=== PATIENT | female | born 1950 | race Caucasian/White ===

== ENCOUNTER 2020-06-02 11:18 | Emergency (ER) | payer MEDICARE, MEDICAID ==
[~2020-06-02] VITALS: Ht 160 cm; Wt 74.0 kg
[2020-06-02 12:28] LABS: BASOPHILS % 0.6 % (0.0-2.0); EOSINOPHILS % 0.6 % (0.0-5.0); HEMATOCRIT. 41.3 % (36.0-48.0); LYMPHOCYTES % 19.5 % (20.0-50.0); MEAN CORPUSCULAR VOLUME 88.5 fL (81.0-99.0); MEAN PLATELET VOLUME 8.9 fl (7.4-10.4); MONOCYTES % 6.1 % (2.0-8.0); NEUTROPHILS % 73.2 % (40.0-76.0); PLATELET 172 x1000/uL (130-400); RED BLOOD CELL COUNT 4.67 mill/uL (4.2-5.4); RED CELL DISTRIBUTION WIDTH 13.8 % (11.6-14.6)
[2020-06-02 12:37] LABS: CHLORIDE 105 mEq/L (98-107)
[2020-06-02 22:32] VITALS: BP 135/74
== END 2020-06-02 22:32 | disposition left against medical advice (07) ==
LOC: ER 11:45 → CANBEDREQ 16:14 → ER 22:32
DX: R07.89 Other chest pain (principal); I10 Essential (primary) hypertension; E03.9 Hypothyroidism, unspecified
CPT/HCPCS: 36415; 71045; 80053; 83880; 84484; 85025; 93005; 99285